=== PATIENT | male | born 1965 | race African-American/Black ===

== ENCOUNTER 2023-07-08 00:54 | Outpatient (CLI) | payer OTHER | END 2023-07-08 23:59 | disposition critical access hospital (66) | LOC: EMS 00:54 | DX: R04.2 Hemoptysis (principal); R10.31 Right lower quadrant pain; F10.90 Alcohol use, unspecified, uncomplicated | CPT/HCPCS: A0425; A0429 ==

== ENCOUNTER 2023-07-08 01:11 | Emergency (ER) | payer MEDICAID, OTHER ==
[2023-07-08] MEDS ORDERED: PANTOPRAZOLE 40 MG VIAL IV STA (01:21)
[2023-07-08] MEDS ORDERED: SODIUM CHLORIDE 0.9% 1,000 ML IV STA (01:24)
--- NOTE | 2023-07-08 01:24 | ED Physician Documentation ---
History of Present Illness - Stated complaint Stated Complaint: VOMITING BLOOD - History obtained from History obtained from: Patient, EMS - Additonal information Additional information: 58yM with no stated pmh p/w 2 episodes of bloody vomitus tonight after taking "some shots" and drinking a couple liters of alcohol over the past couple days. denies pain anywhere. states he had nausea that resolved after ems gave him zofran. denies bloody or black stools. he has had bloody vomiting in the past "a long time ago" but denies history of alcohol related medical issues or cirrhosis. denies fevers. PD PAST MEDICAL HISTORY - Allergies Allergies/Adverse Reactions: Allergies Allergy/AdvReac Type Severity Reaction Status Date / Time No Known Drug Allergies Allergy Verified 07/08/23 01:23 PD ED PE NORMAL - Vitals Vital signs reviewed: Yes - General General: Alert and oriented X 3, No acute distress, Other (thin appearing) - HEENT HEENT: Atraumatic, PERRL, EOMI, Moist mucous membranes, Pharynx benign, Other (yellow conjunctivae) - Neck Neck: Supple, no meningeal sign - Cardiac Cardiac: RRR - Respiratory Respiratory: No respiratory distress, Clear bilaterally - Abdomen Abdomen: Non tender, Non distended - Derm Derm: Normal color, Warm and dry - Neuro Neuro: Alert and oriented X 3 Results - Vitals Vitals: Vital Signs - 24 hr 07/08/23 01:19 Temperature 37 C Heart Rate 82 Respiratory 17 Rate Blood Pressure 135/86 H O2 Saturation 98 Oxygen O2 Source Room air - Labs Labs: Laboratory Tests 07/08/23 07/08/23 01:28 01:28 WBC 13.7 H RBC 4.31 L Hgb 14.5 Hct 44.3 MCV 102.8 H MCH 33.6 H MCHC 32.7 RDW 14.5 Plt Count 167 MPV 11.0 Neut # (Auto) 10.5 H Lymph # (Auto) 2.1 [place]ayson # (Auto) 0.9 Eos # (Auto) 0.1 Baso # (Auto) 0.1 Absolute Nucleated RBC 0.00 Nucleated RBC % 0.0 Sodium 137 Potassium 3.6 Chloride 100 L Carbon Dioxide 19 L Anion Gap 18.0 H BUN 17 Creatinine 0.8 Estimated GFR (MDRD) 121 Glucose 81 Calcium 9.0 Total Bilirubin 0.4 AST 47 H ALT 27 Alkaline Phosphatase 47 Total Protein 6.6 Albumin 4.3 Globulin 2.3 Albumin/Globulin Ratio 1.9 Lipase 62 Ethyl Alcohol 169.0 PD Medical Decision Making - ED course ED course: 58yM presents to the ED with alcohol intoxication and bright red emesis X 2 tonight. Nausea resolved s/p zofran via ems. plan to administer protonix and IVF given possible UGIB 2/2 alcoholism. cbc, abdominal panel, alcohol level ordered on bloodwork. Patient has alcohol level >80 therefore he will have a ride come to get him home. His labwork otherwise is unremarkable with normal hemoglobin. He can follow up outpatient with pcp. return precautions given. Departure - Departure Disposition: Home, Self Care Clinical Impression: Alcohol abuse, Bloody emesis Condition: Stable Instructions: ED Alcohol Abuse Follow-Up: Yumiko Ibarra MD [Physician No Access] - Comments: You were seen in the emergency department for bloody vomit and alcohol intoxication. Your bloodwork was normal. You don't have dangerous amounts of blood loss from this for now. Please follow-up with your primary care provider for referral to GI and return to the emergency department if you have any new or worsening symptoms or other concerns.
[2023-07-08 01:37] LABS: BASOPHILS # (AUTO) 0.1 10^3/uL (0.0-0.1); BASOPHILS % (AUTO) 0.5 %; EOSINOPHILS # (AUTO) 0.1 10^3/uL (0.0-0.7); EOSINOPHILS % (AUTO) 0.4 %; HCT - HEMATOCRIT 44.3 % (42.0-52.0); HGB - HEMOGLOBIN 14.5 g/dL (14.0-18.0); LYMPHOCYTES # (AUTO) 2.1 10^3/uL (1.5-3.5); MEAN CORPUSCULAR HEMOGLOBIN 33.6 pg (27.0-31.0); MEAN CORPUSCULAR HGB CONC 32.7 g/dL (32.0-36.0); MEAN CORPUSCULAR VOLUME 102.8 fL (80.0-94.0); MONOCYTES # (AUTO) 0.9 10^3/uL (0.0-1.0); MONOCYTES % (AUTO) 6.6 %; NEUTROPHILS # (AUTO) 10.5 10^3/uL (1.5-6.6); PLT - PLATELET COUNT 167 10^3/uL (130-450); RED BLOOD COUNT 4.31 10^6/uL (4.70-6.10); RED CELL DISTRIBUTION WIDTH 14.5 % (12.0-15.0); WHITE BLOOD COUNT 13.7 x10^3/uL (4.8-10.8)
[2023-07-08 01:49] LABS: ALBUMIN 4.3 g/dL (3.2-5.5)
[2023-07-08 01:50] LABS: ALBUMIN/GLOBULIN RATIO 1.9 (1.0-2.2); BILIRUBIN,TOTAL 0.4 mg/dL (0.2-1.0); CREATININE 0.8 mg/dL (0.6-1.3); POTASSIUM 3.6 mmol/L (3.5-4.5); TOTAL PROTEIN 6.6 g/dL (6.4-8.9)
[2023-07-08 02:51] VITALS: BP 138/85; O2SAT 100
== END 2023-07-08 03:06 | disposition home or self-care (01) ==
LOC: EDUNIT# → EDSEX → ED 01:11
DX: K92.0 Hematemesis (principal); F10.129 Alcohol abuse with intoxication, unspecified; Y90.6 Blood alcohol level of 120-199 mg/100 ml
CPT/HCPCS: 36415; 80053; 80320; 83690; 85025; 96374; 99284

== ENCOUNTER 2024-02-18 22:01 | Outpatient (CLI) | payer OTHER | END 2024-02-18 23:59 | disposition critical access hospital (66) | LOC: EMS 22:01 | DX: Z04.6 Encounter for general psychiatric examination, requested by authority (principal); R45.851 Suicidal ideations | CPT/HCPCS: A0425; A0429 ==

== ENCOUNTER 2024-02-18 22:18 | Emergency (ER) | payer OTHER ==
--- NOTE | 2024-02-18 22:17 | ED Physician Documentation ---
PD HPI MHE - Stated complaint Stated Complaint: SI/ETOH - History obtained from History obtained from: Patient, EMS - Additional information Additional information: BIBA. Patient's girlfriend called 911 tonight due to patient threatening suicide. Patient admits to drinking alcohol tonight. He says he has been under a lot of stress with recent stressors including his girlfriend recently being diagnosed with cancer, patient losing his job. Patient admits that he held a knife to his chest tonight and contemplating stabbing himself in the chest. At this time, he is denying suicidal thoughts/intent. Review of Systems Unable to obtain: Intoxicated PD PAST MEDICAL HISTORY - Allergies Allergies/Adverse Reactions: Allergies Allergy/AdvReac Type Severity Reaction Status Date / Time aspirin Allergy Rash Verified 02/18/24 22:31 PD ED PE NORMAL - Vitals Vital signs reviewed: Yes - General General: Alert and oriented X 3, No acute distress, Well developed/nourished, Other (slurred speech) - HEENT HEENT: PERRL, EOMI - Cardiac Cardiac: RRR, No murmur - Respiratory Respiratory: No respiratory distress, Clear bilaterally - Abdomen Abdomen: Soft, Non tender - Neuro Neuro: Alert and oriented X 3 Eye Opening: Spontaneous Motor: Obeys Commands Verbal: Oriented GCS Score: 15 Results - Vitals Vitals: Vital Signs - 24 hr 02/18/24 22:22 Temperature 36.9 C Heart Rate 94 Respiratory 20 Rate Blood Pressure 155/90 H O2 Saturation 100 Oxygen O2 Source Room air - Labs Labs: Laboratory Tests 02/18/24 02/18/24 02/18/24 22:30 22:30 22:50 WBC 10.4 RBC 4.23 L Hgb 14.3 Hct 41.2 L MCV 97.4 H MCH 33.8 H MCHC 34.7 RDW 13.6 Plt Count 147 MPV 10.9 Neut # (Auto) 7.4 H Lymph # (Auto) 2.0 Rolette # (Auto) 0.8 Eos # (Auto) 0.1 Baso # (Auto) 0.1 Absolute Nucleated RBC 0.00 Nucleated RBC % 0.0 Sodium 141 Potassium 3.6 Chloride 102 Carbon Dioxide 27 Anion Gap 12.0 BUN 10 Creatinine 0.7 Estimated GFR (MDRD) 141 Glucose 98 Calcium 9.3 Magnesium 1.7 Total Bilirubin 0.4 AST 39 ALT 25 Alkaline Phosphatase 76 Total Creatine Kinase 239 H Total Protein 7.6 Albumin 4.5 Globulin 3.1 Albumin/Globulin Ratio 1.5 Lipase 75 TSH 2.43 Urine Color Urine Clarity Urine pH Ur Specific Bennett Urine Protein Urine Glucose (UA) Urine Ketones Urine Occult Blood Urine Nitrite Urine Bilirubin Urine Urobilinogen Ur Leukocyte Esterase Ur Microscopic Review Urine Culture Comments Salicylates < 1.5 Urine Opiates Screen Ur Buprenorphine Scrn Ur Oxycodone Screen Urine Methadone Screen Acetaminophen 0.1 Ur Barbiturates Screen Ur Tricyclics Screen Ur Phencyclidine Scrn Ur Amphetamine Screen U Methamphetamines Scrn U Benzodiazepines Scrn Urine Cocaine Screen U Cannabinoids Screen Ur Drug Screen Comment Ethyl Alcohol 359.2 SARS-CoV-2 (PCR) NOT DETECTED 02/18/24 23:10 WBC RBC Hgb Hct MCV MCH MCHC RDW Plt Count MPV Neut # (Auto) Lymph # (Auto) Rolette # (Auto) Eos # (Auto) Baso # (Auto) Absolute Nucleated RBC Nucleated RBC % Sodium Potassium Chloride Carbon Dioxide Anion Gap BUN Creatinine Estimated GFR (MDRD) Glucose Calcium Magnesium Total Bilirubin AST ALT Alkaline Phosphatase Total Creatine Kinase Total Protein Albumin Globulin Albumin/Globulin Ratio Lipase TSH Urine Color YELLOW Urine Clarity CLEAR Urine pH 6.0 Ur Specific Bennett <=1.005 Urine Protein NEGATIVE Urine Glucose (UA) NEGATIVE Urine Ketones NEGATIVE Urine Occult Blood TRACE-LYSE Urine Nitrite NEGATIVE Urine Bilirubin NEGATIVE Urine Urobilinogen 0.2 (NORMAL) Ur Leukocyte Esterase NEGATIVE Ur Microscopic Review NOT INDICATED Urine Culture Comments NOT INDICATED Salicylates Urine Opiates Screen NEGATIVE Ur Buprenorphine Scrn NEGATIVE Ur Oxycodone Screen NEGATIVE Urine Methadone Screen NEGATIVE Acetaminophen Ur Barbiturates Screen NEGATIVE Ur Tricyclics Screen NEGATIVE Ur Phencyclidine Scrn NEGATIVE Ur Amphetamine Screen NEGATIVE U Methamphetamines Scrn NEGATIVE U Benzodiazepines Scrn NEGATIVE Urine Cocaine Screen NEGATIVE U Cannabinoids Screen NEGATIVE Ur Drug Screen Comment CUTOFF CONC BELOW: Ethyl Alcohol SARS-CoV-2 (PCR) PD Medical Decision Making - ED course Complexity details: reviewed results, re-evaluated patient, considered differential, d/w patient ED course: Mostly unremarkable test results (CBC, ER abdominal panel, TSH, urinalysis, urine drug screen), but relevant to this situation is a very high serum ethanol level (359.2). Will need to be held in the emergency department overnight until he is both clinically sober as well as by redraw of serum alcohol level in the morning. At that time, he can be reevaluated regarding SI. Care of patient is turned over to oncoming ED physician (Dr. Mcadams) at end of my shift pending sobriety and reevaluation.
[2024-02-18 22:34] LABS: BASOPHILS # (AUTO) 0.1 10^3/uL (0.0-0.1); BASOPHILS % (AUTO) 0.7 %; EOSINOPHILS # (AUTO) 0.1 10^3/uL (0.0-0.7); EOSINOPHILS % (AUTO) 0.9 %; HCT - HEMATOCRIT 41.2 % (42.0-52.0); HGB - HEMOGLOBIN 14.3 g/dL (14.0-18.0); LYMPHOCYTES % (AUTO) 19.6 %; MEAN CORPUSCULAR HEMOGLOBIN 33.8 pg (27.0-31.0); MEAN CORPUSCULAR HGB CONC 34.7 g/dL (32.0-36.0); MEAN CORPUSCULAR VOLUME 97.4 fL (80.0-94.0); MEAN PLATELET VOLUME 10.9 fL (7.4-11.4); MONOCYTES # (AUTO) 0.8 10^3/uL (0.0-1.0); MONOCYTES % (AUTO) 7.5 %; NEUTROPHILS # (AUTO) 7.4 10^3/uL (1.5-6.6); NEUTROPHILS % (AUTO) 71.1 %; PLT - PLATELET COUNT 147 10^3/uL (130-450); RED BLOOD COUNT 4.23 10^6/uL (4.70-6.10); RED CELL DISTRIBUTION WIDTH 13.6 % (12.0-15.0); WHITE BLOOD COUNT 10.4 x10^3/uL (4.8-10.8)
[2024-02-18 22:52] LABS: ACETAMINOPHEN 0.1 ug/mL; ALBUMIN 4.5 g/dL (3.2-5.5); ALBUMIN/GLOBULIN RATIO 1.5 (1.0-2.2); ALKALINE PHOSPHATASE 76 IU/L (42-121); ALT ALANINE AMINOTRANSFERASE 25 IU/L (10-60); AST ASPARTATE AMINOTRANSFERASE 39 IU/L (10-42); BILIRUBIN,TOTAL 0.4 mg/dL (0.2-1.0); BUN - BLOOD UREA NITROGEN 10 mg/dL (6-20); CALCIUM 9.3 mg/dL (8.5-10.3); CARBON DIOXIDE - CO2 27 mmol/L (21-32); CHLORIDE 102 mmol/L (101-111); CK- CREATINE KINASE 239 IU/L (30-223); CREATININE 0.7 mg/dL (0.6-1.3); ETOH - ETHANOL 359.2 mg/dL; GFR - MDRD 141 (>89); GLUCOSE 98 mg/dL (74-104); LIPASE 75 U/L (11-82); MAGNESIUM 1.7 mg/dL (1.7-2.3); POTASSIUM 3.6 mmol/L (3.5-4.5); SODIUM 141 mmol/L (135-145); TOTAL PROTEIN 7.6 g/dL (6.4-8.9)
[2024-02-18 22:57] LABS: SALICYLATE < 1.5 mg/dL
[2024-02-18 23:03] LABS: THYROID STIMULATING HORMONE 2.43 uIU/mL (0.34-5.60)
[2024-02-18 23:39] LABS: BILIRUBIN,URINE NEGATIVE (NEGATIVE); GLUCOSE, URINE (UA) NEGATIVE (NEGATIVE); KETONES,URINE (UA) NEGATIVE (NEGATIVE); LEUKOCYTE ESTERASE, URINE NEGATIVE (NEGATIVE); NITRITE,URINE NEGATIVE (NEGATIVE); OCCULT BLOOD,URINE TRACE-LYSE (NEGATIVE); PROTEIN,URINE NEGATIVE (NEGATIVE); UROBILINOGEN,URINE 0.2 (NORMAL) E.U./dL (NORMAL)
[2024-02-18 23:43] LABS: CLARITY,URINE CLEAR (CLEAR)
[2024-02-18 23:51] LABS: AMPHETAMINE SCREEN,URINE NEGATIVE (NEGATIVE); BARBITURATE SCREEN,UR NEGATIVE (NEGATIVE); BENZODIAZEPINES SCREEN, URINE NEGATIVE (NEGATIVE); BUPRENORPHINE SCREEN, URINE NEGATIVE (NEGATIVE); COCAINE SCREEN URINE NEGATIVE (NEGATIVE); METHADONE SCREEN, URINE NEGATIVE (NEGATIVE); METHAMPHETAMINES SCREEN, URINE NEGATIVE (NEGATIVE); OPIATE SCREEN, URINE NEGATIVE (NEGATIVE); OXYCODONE SCREEN, URINE NEGATIVE (NEGATIVE); THC CANNABINOID SCREEN, URINE NEGATIVE (NEGATIVE); TRICYCLIC ANTIDEPRESSANT,URINE NEGATIVE (NEGATIVE)
--- NOTE | 2024-02-19 11:41 | ED Physician Documentation ---
ED Addendum - Addendum Addendum: 02/19/24 11:38 You had expressed some suicidal ideation while intoxicated. You are clear about not having those feelings at this time. I would suggest not having alcohol as that can bring about those emotions more easily with the disinhibition that occurs with intoxication. Follow-up with the crisis line as suggested by the social human services assistants. Follow-up with counseling that may be helpful for dealing with the stresses that you have. Stay well-hydrated otherwise. Regular mild exercise can be helpful for mood as well. 02/19/24 11:43 The patient was seen by social work. He had sobered and was stating he did not have any intention of hurting himself and has forward thinking with starting new job in a week and being supportive for his girlfriend. However he was still useful to have social work see him to confirm the impression and also social work was able better to arrange follow-up calls from crisis line and also provide resources for counseling. The patient was agreeable to these. They contracted for safety. The patient is dischargeable home at this time. Diagnoses: 1. Situational stress 2. Passive suicidal ideation 3. Alcohol intoxication Disposition: The patient discharged home in stable condition.
[2024-02-19 12:02] VITALS: BP 140/88; O2SAT 98
== END 2024-02-19 11:36 | disposition home or self-care (01) ==
LOC: EDUNIT# → ED 22:18
DX: F43.0 Acute stress reaction (principal); R45.851 Suicidal ideations; F10.129 Alcohol abuse with intoxication, unspecified; Y90.8 Blood alcohol level of 240 mg/100 ml or more
CPT/HCPCS: 36415; 80053; 80143; 80179; 80306; 81001; 81003; 82077; 82550; 83690; 83735; 84443; 85025; 87086; 87635; 99283; 99285